=== PATIENT | female | born 1970 | race Caucasian/White ===

== ENCOUNTER → 2017-06-24 | Outpatient (CLI) | payer MEDICAID ==
[~2017-06-24] MED LIST: CIPRO 500MG TA500 MG PO; FLAGYL500 M1 PO; FLEXERIL10 MG PO; GABAPENTIN800 MG PO; HYDROCHLOROTH12.5 M1 PO; IBU600 MG PO; LEVOTHYROXINE0.1 M1 PO; LEVOTHYROXINE0.15 MG PO; POTASSIUM CHLO10 MEQ PO
[2017-06-24 13:06] LABS: AMPHETAMINES/METAMPHETAMINES NEGATIVE ng/mL (<1000)
== END ==
LOC: LAB 12:08
PROVIDERS: Emergency Medicine
DX: Z79.899 Other long term (current) drug therapy (principal)

== ENCOUNTER → 2017-07-21 | Outpatient (CLI) | payer MEDICAID | LOC: RT 07-14 14:00 | DX: R05 Cough (principal) ==

== ENCOUNTER → 2017-07-23 | Outpatient (CLI) | payer MEDICAID ==
[2017-07-23 13:41] LABS: AMPHETAMINES/METAMPHETAMINES NEGATIVE ng/mL (<1000)
[2017-07-28 14:36] LABS: Codeine Negative (Cutoff=100); Hydrocodone Positive (.); Hydromorphone Negative (Cutoff=100); Morphine Negative (Cutoff=100); Opiates Positive (.)
== END ==
LOC: LAB 13:18
PROVIDERS: Emergency Medicine
DX: Z79.899 Other long term (current) drug therapy (principal)